=== PATIENT | male | born 1980 | race Caucasian/White ===

== ENCOUNTER 2019-01-26 01:27 | Emergency (ER) | payer SELFPAY ==
[2019-01-26 01:52] LABS: Absolute Lymphocytes (CBC) 1.7 K/uL (0.7-4.9); Absolute Monocytes 0.4 K/uL (0.1-1.3); Absolute Neutrophil 1.3 K/uL (1.8-8.0); Basophils % 2.5 % (0-1.3); Eosinophils % 2.9 % (0-4.4); Lymphocytes % 47.9 % (15.3-44.8); MPV 8.6 fL (7.6-11.3)
[2019-01-26 02:04] LABS: ALT/SGPT 30 U/L (12-78); AST/SGOT 15 U/L (15-37); Alkaline Phosphatase 48 U/L (45-117); BUN Blood Urea Nitrogen 16 mg/dL (7-18); Bicarbonate 24 mmol/L (21-32); Bilirubin Direct 0.1 mg/dL (0-0.2); Bilirubin Total 0.4 mg/dL (0.2-1.0); Glucose Level 121 mg/dL (74-106); Lipase 448 U/L (73-393); Potassium 3.9 mmol/L (3.5-5.1); Protein, Total 6.8 g/dL (6.4-8.2); Sodium Level 142 mmol/L (136-145)
[2019-01-26] MEDS ORDERED: ONDANSETRON 4 MG/2 ML VIAL ONE ×2 (02:07→07:52)
[2019-01-26] MEDS ORDERED: NA CHLORIDE 0.9% 1,000 ML ONE (02:07)
[2019-01-26] MEDS ORDERED: MORPHINE 4 MG/ML SYR ONE ×2 (02:07→07:52)
[2019-01-26 02:08] LABS: Hematocrit 18.8 % (39.6-49.0)
[2019-01-26 02:30] LABS: Anisocytosis 3+; Blood Morphology Comment NOTED (NOT SEEN); Hypochromasia 3+; Ovalocytes 2+; Platelet Estimate ADEQ; Urine White Blood Cell Casts OK
[2019-01-26 02:32] LABS: RBC Red Blood Cell Count 3.01 M/uL (4.33-5.43)
[2019-01-26] MEDS ORDERED: MEPERIDINE HCL 25 MG/0.5 ML ONE (02:48)
[2019-01-26 03:05] LABS: Ferritin 0.9 ng/mL (26-388); Folic Acid, (Folate) 18.8 ng/mL (3.1-17.5)
--- NOTE | 2019-01-26 06:00 | EDPHYS ---
Physician Documentation [facility] Name: Karthik Frank Age: 38 yrs Sex: Male : 1980 Arrival Date: 01/26/2019 Time: 01:28 Bed 18 Private MD: ED Physician Darrell Elise HPI: 01/26 01:48 This 38 yrs old Male presents to ER via EMS with complaints of Abdominal Pain.pkl 01:48 The patient presents with abdominal pain in the upper abdomen. Onset: The pkl symptoms/episode began/occurred just prior to arrival, 1 hour(s) ago. The symptoms do not radiate. Associated signs and symptoms: none. Historical: - Allergies: 01:29 PENICILLINS; ak1 - Home Meds: : None [Active]; ak1 - PMHx: :29 None; ak1 - PSHx: :29 gastric weight loss sx; ak1 - Immunization history:: Adult Immunizations unknown. - Social history:: Smoking status: Patient/guardian denies using tobacco. - Ebola Screening: : No symptoms or risks identified at this time. ROS: 01:48 Eyes: Negative for injury, pain, redness, and discharge, ENT: Negative for injury, pkl pain, and discharge, Neck: Negative for injury, pain, and swelling, Cardiovascular: Negative for chest pain, palpitations, and edema, Respiratory: Negative for shortness of breath, cough, wheezing, and pleuritic chest pain. 01:48 Abdomen/GI: Positive for abdominal pain, of the right upper quadrant and left upper quadrant. 01:48 Back: Negative for acute changes. 01:48 : Negative for urinary symptoms. 01:48 MS/extremity: Negative for acute changes. 01:48 Skin: Negative for rash. 01:48 Neuro: Negative for altered mental status. Exam: 01:48 Head/Face: Normocephalic, atraumatic. Eyes: Pupils equal round and reactive to light, pkl extra-ocular motions intact. Lids and lashes normal. Conjunctiva and sclera are non-icteric and not injected. Cornea within normal limits. Periorbital areas with no swelling, redness, or edema. ENT: Nares patent. No nasal discharge, no septal abnormalities noted. Tympanic membranes are normal and external auditory canals are clear. Oropharynx with no redness, swelling, or masses, exudates, or evidence of obstruction, uvula midline. Mucous membranes moist. Neck: Trachea midline, no thyromegaly or masses palpated, and no cervical lymphadenopathy. Supple, full range of motion without nuchal rigidity, or vertebral point tenderness. No Meningismus. Chest/axilla: Normal chest wall appearance and motion. Nontender with no deformity. No lesions are appreciated. Cardiovascular: Regular rate and rhythm with a normal S1 and S2. No gallops, murmurs, or rubs. Normal PMI, no JVD. No pulse deficits. Respiratory: Lungs have equal breath sounds bilaterally, clear to auscultation and percussion. No rales, rhonchi or wheezes noted. No increased work of breathing, no retractions or nasal flaring. 01:48 Abdomen/GI: Bowel sounds: normal, Palpation: soft, mild abdominal tenderness, in the right upper quadrant and left upper quadrant. 01:48 Back: Exam negative for acute changes. 01:48 : Exam negative for acute changes. 01:48 Musculoskeletal/extremity: Exam is negative for acute changes. 01:48 Skin: Exam negative for rash. 01:48 Neuro: Orientation: is normal, Mentation: is normal, Cranial nerves: grossly normal, Motor: is normal. Vital Signs: 01:29 BP 126 / 82; Pulse 74; Resp 20; Temp 97.9(O); Pulse Ox 100% on R/A; Weight 70.31 kg ak1 (R); Height 5 ft. 6 in. (167.64 cm) (R); Pain 9/10; 03:07 BP 118 / 84; Pulse 74; Resp 18; Pulse Ox 100% ; Pain 0/10; ao 04:33 BP 134 / 71; Pulse 71; Resp 16; Pulse Ox 100% ; Pain 0/10; ao 05:30 BP 128 / 62; Pulse 78; Resp 18; Pulse Ox 100% on R/A; ao 06:20 BP 130 / 60; Pulse 84; Resp 18; Pulse Ox 100% on R/A; ao 01:29 Body Mass Index 25.02 (70.31 kg, 167.64 cm) ak1 MDM: 01:39 Patient medically screened. pkl 05:57 Data reviewed: vital signs, nurses notes, lab test result(s), radiologic studies, CT pkl scan. 01/26 01:31 Order name: Basic Metabolic Panel; Complete Time: 02:10 01/26 01:31 Order name: CBC with Diff; Complete Time: 04:55 ak1 01/26 01:31 Order name: Creatinine for Radiology; Complete Time: 02:10 01/26 01:31 Order name: Hepatic Function; Complete Time: 02:10 01/26 01:31 Order name: Lipase; Complete Time: 02:10 ak01/26 02:08 Order name: CBC Smear Scan; Complete Time: 04:55 EDMS 01/26 02:21 Order name: Type And Screen bb 01/26 02:24 Order name: Retic Count; Complete Time: 04:55 bb 01/26 02:24 Order name: B12; Complete Time: 04:55 bb 01/26 02:24 Order name: TIBC; Complete Time: 04:55 bb 01/26 02:24 Order name: Folic Acid,Serum (folate); Complete Time: 04:55 bb 01/26 02:28 Order name: Ferritin; Complete Time: 04:55 EDMS 01/26 03:45 Order name: ABO/RH no charge; Complete Time: 04:55 EDMS 01/26 01:31 Order name: IV Saline Lock; Complete Time: 01:31 ak01/26 01:31 Order name: Labs collected and sent; Complete Time: 01:40 ak01/26 01:47 Order name: CT Abd/Pelvis - W/Contrast pkl 01/26 05:50 Order name: Transfuse; Complete Time: 07:48 ao 01/26 05:52 Order name: Packed RBCs (Additional Unit) EDMS Administered Medications: 02:03 Drug: NS 0.9% 1000 ml Route: IV; Rate: 1000 ml; Site: right antecubital; ao 02:40 Follow up: IV Status: Completed infusion; IV Intake: 1000ml ao 02:03 Drug: morphine 4 mg Route: IVP; Site: right antecubital; ao 05:12 Follow up: Response: No adverse reaction; Pain is unchanged, physician notified ao 02:03 Drug: Zofran 4 mg Route: IVP; Site: right antecubital; ao 05:12 Follow up: Response: No adverse reaction ao 02:46 Drug: Demerol 25 mg Route: IVP; Site: right antecubital; ao 05:20 Follow up: Response: No adverse reaction ao 07:45 Drug: morphine 4 mg Route: IVP; Site: right antecubital; bp 07:48 Follow up: Response: Medication administered at discharge. bp 07:45 Drug: Zofran 4 mg Route: IVP; Site: right antecubital; bp 07:48 Follow up: Response: Medication administered at discharge. bp Point of Care Testing: Guaiac: 04:20 Stool Guaiac: Positive; Stool Hemoccult Control: Pass; ao Disposition: 01/26/19 06:00 Transfer ordered to [facility]. Diagnosis is Abdominal pain. Anemia. Possible G.I. Bleed.. - Reason for transfer: Higher level of care. - Accepting physician is Dr. Hoyt. - Condition is Stable. - Problem is new. - Symptoms have improved. Signatures: Dispatcher [employer] EDOH Darrell Elise MD MD pkl Krenek, Amber RN RN ak1 Rodri Sánchez RN RN Yovanny Rangel, RN RN bp Corrections: (The following items were deleted from the chart) 02:27 02:22 FERRITIN+C.LAB.BRZ ordered. EDOH EDMS 05:30 02:20 Abdomen/GI: Rectal exam: Stool: guaiac negative, the exam is chaperoned by the pkl nurse, pkcruz 07:49 06:00 01/26/2019 06:00 Transfer ordered to [facility]. Diagnosis is Abdominal pain. bp Anemia. Possible G.I. Bleed.. Reason for transfer: Higher level of care. Accepting physician is Dr. Hoyt. Condition is Stable. Problem is new. Symptoms have improved. pkl
--- NOTE | 2019-01-26 06:00 | ER ---
Nurse's Notes [facility] Name: Karthik Frank Age: 38 yrs Sex: Male : 1980 Arrival Date: 01/26/2019 Time: 01:28 Bed 18 Private MD: Diagnosis: Abdominal pain. Anemia. Possible G.I. Bleed. Presentation: 01/26 01:28 Presenting complaint: Patient states: generalized abd pain that woke him up from sleep. ak1 pt c/o nausea. pt denies vomiting, denies diarrhea. Transition of care: patient was not received from another setting of care. Onset of symptoms was January 26, 2019. Risk Assessment: Do you want to hurt yourself or someone else? Patient reports no desire to harm self or others. Initial Sepsis Screen: Does the patient meet any 2 criteria? No. Patient's initial sepsis screen is negative. Does the patient have a suspected source of infection? No. Patient's initial sepsis screen is negative. Care prior to arrival: None. 01:28 Method Of Arrival: EMS: [facility] ak1 01:28 Acuity: STEPHENIE 3 ak1 Triage Assessment: 01:29 General: Appears uncomfortable, slender, Behavior is anxious. Pain: Complains of pain ak1 in abdomen. Historical: - Allergies: PENICILLINS; ak1 - Home Meds: : None [Active]; ak1 - PMHx: : None; ak1 - PSHx: : gastric weight loss sx; ak1 - Immunization history:: Adult Immunizations unknown. - Social history:: Smoking status: Patient/guardian denies using tobacco. - Ebola Screening: : No symptoms or risks identified at this time. Screenin:30 Abuse screen: Denies threats or abuse. Denies injuries from another. Nutritional ak1 screening: No deficits noted. Tuberculosis screening: No symptoms or risk factors identified. Fall Risk None identified. Assessment: 02:04 General: Appears in no apparent distress. comfortable, Behavior is calm, cooperative, ao appropriate for age. Pain: Complains of pain in abdomen Pain currently is 8 out of 10 on a pain scale. Neuro: Level of Consciousness is awake, alert, obeys commands, Oriented to person, place, time, situation, Appropriate for age Moves all extremities. Full function Speech is normal, Facial symmetry appears normal, Pupils are PERRLA. Cardiovascular: Capillary refill < 3 seconds Patient's skin is warm and dry. Respiratory: Airway is patent Respiratory effort is even, unlabored, Respiratory pattern is regular, symmetrical. GI: Bowel sounds present X 4 quads. Abd is soft and non tender X 4 quads. Abd is soft. : No signs and/or symptoms were reported regarding the genitourinary system. EENT: No signs and/or symptoms were reported regarding the EENT system. Derm: No signs and/or symptoms reported regarding the dermatologic system. Skin is intact, Skin is pink, warm \T\ dry. normal, Skin temperature is warm. Musculoskeletal: No signs and/or symptoms reported regarding the musculoskeletal system. 03:06 Reassessment: Patient appears in no apparent distress at this time. Patient and/or ao family updated on plan of care and expected duration. Pain level reassessed. Patient is alert, oriented x 3, equal unlabored respirations, skin warm/dry/pink. Type and screen sent. 04:33 Reassessment: Patient back from CT. ao 04:50 Reassessment: Patient requesting pain medication. Dr Elise was notified. ao 05:47 Reassessment: Patient appears in no apparent distress at this time. Patient and/or ao family updated on plan of care and expected duration. Pain level reassessed. Waiting on dispo orders. Per Dr Elise looking to transfer patient. Patient states symptoms have not improved. 05:52 Reassessment: Per Dr Elise to transfuse 2 units. Lab was called and notified of orders. ao Waiting on blood to be ready. 06:20 Reassessment: Patient appears in no apparent distress at this time. Patient and/or ao family updated on plan of care and expected duration. Pain level reassessed. Patient's mother asked why patient will be transferred and was redirected to Dr Elise who told her it was because of GI services not available in this hospital. 06:45 Reassessment: Report called to Rusty Garza at [facility]. Patient to be transferred. ao EMS had been called. Waiting to start first unit of blood. 07:04 Reassessment: Cross checked blood with RUSTY Mace at pt's bedside. jb4 07:15 Reassessment: RECD REPORT FROM PILO JOEDA. 38YO WM P/W ABD PAIN, +GUAIC. XFER IN PROCESS. bp 07:45 Reassessment: PT FIORELLA WITH EMS. TRANSFUSION PAPERWORK VERIFIED AND SIGNED OFF TO EMS. bp Vital Signs: 01:29 BP 126 / 82; Pulse 74; Resp 20; Temp 97.9(O); Pulse Ox 100% on R/A; Weight 70.31 kg ak1 (R); Height 5 ft. 6 in. (167.64 cm) (R); Pain 9/10; 03:07 BP 118 / 84; Pulse 74; Resp 18; Pulse Ox 100% ; Pain 0/10; ao 04:33 BP 134 / 71; Pulse 71; Resp 16; Pulse Ox 100% ; Pain 0/10; ao 05:30 BP 128 / 62; Pulse 78; Resp 18; Pulse Ox 100% on R/A; ao 06:20 BP 130 / 60; Pulse 84; Resp 18; Pulse Ox 100% on R/A; ao 01:29 Body Mass Index 25.02 (70.31 kg, 167.64 cm) ak1 ED Course: 01:28 Patient arrived in ED. ak1 01:29 Triage completed. ak1 01:29 Arm band placed on Patient placed in an exam room, on a stretcher, on pulse oximetry, ak1 Patient notified of wait time. 01:30 Patient has correct armband on for positive identification. Bed in low position. Call ak1 light in reach. Side rails up X2. Pulse ox on. NIBP on. 01:31 Maintain EMS IV. Dressing intact. Site clean \T\ dry. Gauge \T\ site: 20g right AC. ak 1 01:39 Darrell Elise MD is Attending Physician. pkl 01:40 Initial lab(s) drawn, by nj, sent to lab. ak1 01:48 Pilo Sánchez RN is Primary Nurse. ao 02:42 Consent for blood and/or blood product transfusion explained by staff, signed by ao patient. 04:44 CT Abd/Pelvis - W/Contrast In Process Unspecified. EDMS 07:27 Report given to RUSTY Hairston. ao 07:46 No provider procedures requiring assistance completed. Patient transferred, IV remains bp in place. Administered Medications: 02:03 Drug: NS 0.9% 1000 ml Route: IV; Rate: 1000 ml; Site: right antecubital; ao 02:40 Follow up: IV Status: Completed infusion; IV Intake: 1000ml ao 02:03 Drug: morphine 4 mg Route: IVP; Site: right antecubital; ao 05:12 Follow up: Response: No adverse reaction; Pain is unchanged, physician notified ao 02:03 Drug: Zofran 4 mg Route: IVP; Site: right antecubital; ao 05:12 Follow up: Response: No adverse reaction ao 02:46 Drug: Demerol 25 mg Route: IVP; Site: right antecubital; ao 05:20 Follow up: Response: No adverse reaction ao 07:45 Drug: morphine 4 mg Route: IVP; Site: right antecubital; bp 07:48 Follow up: Response: Medication administered at discharge. bp 07:45 Drug: Zofran 4 mg Route: IVP; Site: right antecubital; bp 07:48 Follow up: Response: Medication administered at discharge. bp Point of Care Testing: Guaiac: 04:20 Stool Guaiac: Positive; Stool Hemoccult Control: Pass; ao Intake: 02:40 IV: 1000ml; Total: 1000ml. ao Outcome: 06:00 ER care complete, transfer ordered by . pkcruz 07:46 Transferred by ground EMS to [facility], Transfer form bp completed. 07:46 Condition: stable 07:46 Instructed on the need for transfer. 07:49 Patient left the ED. bp Signatures: Dispatcher [employer] EDMS Darrell Elise MD MD pkl Krenek, Amber, RN RN Pilo Mendoza RN Taz Miramontes RN RN jb4 Yovanny Forde RN RN bp
[2019-01-26] MEDS ORDERED: NA CHLORIDE 0.9% 250 ML ONE (06:56)
--- NOTE | 2019-01-27 11:18 | RAD REPORT ---
EXAM DESCRIPTION: CT ABDOMEN AND PELVIS WITH CONTRAST CLINICAL HISTORY: Generalized abdominal pain with nausea. COMPARISON: None. TECHNIQUE: Axial [address] imaging of the abdomen and pelvis performed utilizing intravenous contrast. Reformatted coronal and sagittal images reviewed. A dose reduction technique was utilized with automated exposure control according to patient size. FINDINGS: LOWER THORAX: Lung bases are clear. Heart is normal in size. ABDOMEN: LIVER/GALLBLADDER: Mild decreased hepatic attenuation due to fatty infiltration. Normal liver size a nd contour. Hepatic and portal vessels appear normal. Gallbladder contains sludge. No evidence of cho lecystitis or biliary dilatation. SPLEEN/PANCREAS: The spleen is mildly enlarged at 13.7 cm. Normal pancreas. KIDNEYS/ADRENAL GLANDS: Normal adrenal glands. Normal right and left kidneys size and contour. There are a few bilateral renal cysts. No renal stone. No perinephric edema. RETROPERITONEAL VESSELS/NODES: Normal aorta and inferior vena cava caliber. No adenopathy. Mesenteri c vessels are well-opacified. BOWEL: Evidence of prior gastric bypass. Small hiatal hernia. Normal caliber small bowel loops. Larg e amount fecal loading within the ascending and transverse colon. Appendix is not visualized. MESENTERY/PERITONEUM: Mild mesenteric edema. Minimal free fluid within the right paracolic gutter. N o free air. PELVIS: BLADDER: Unremarkable bladder. GENITAL ORGANS: Normal prostate. PERITONEUM: Mild pelvic free fluid. BONES AND SOFT TISSUES: Normal lumbar alignment. Lower thoracic Schmorl's nodes are present. No subl uxation. Intact bony pelvis. Normal hips. IMPRESSION: 1. Constipation. 2. Mild ascites. 3. Bilateral renal cysts. 4. Small hiatal hernia. 5. Mild splenomegaly. Electronically signed by: Liz Lagunas DO 01/26/2019 5:00 AM CDT Due to temporary technical issues with the PACS/Fluency reporting system, reports are being signed by the in house radiologist as a courtesy to ensure prompt reporting. The interpreting radiologist is f billly responsible for the content of the report.
== END 2019-01-26 07:49 | disposition short-term general hospital (02) ==
LOC: ER 01:27
DX: R10.10 Upper abdominal pain, unspecified (principal); D64.9 Anemia, unspecified; Z88.0 Allergy status to penicillin
CPT/HCPCS: 36415; 74177; 80048; 80076; 82607; 82728; 82746; 83540; 83690; 84466; 85025; 85044; 86850; 86900; 86901; 96361; 96374; 96375; 99285; J2175; J2405; J7030; P9016; Q9967